=== PATIENT | male | born 1955 | race Caucasian/White ===

== ENCOUNTER → 2020-12-08 07:22 | Outpatient (BNVA) | payer SELFPAY | PROVIDERS: PCP Internal Medicine; Visit Provider Internal Medicine | DX: Z02.79 Encounter for issue of other medical certificate (principal) ==

== ENCOUNTER 2023-10-24 08:11 | Outpatient (REF) | payer MEDICARE, SELFPAY ==
--- NOTE | 2023-10-24 08:17 | EMG_ITS ---
Chief complaint: Bilateral feet numbness Reason for referral: Evaluate for neuropathy Referred by: Bc ROSENBERG Procedure done: Bilateral lower extremity NCS/EMG Precautions and/or limitations: None The limb temperature was monitored continuously and remained between 32-36 degrees C during the performance of the NCS. Nerve Conduction Studies Anti Sensory Summary Table ?Stim Site NR Onset (ms) Norm Onset (ms) Peak (ms) Norm Peak (ms) O-P Amp (?V) Norm O-P Amp Site1 Site2 Delta-0 (ms) Dist (cm) Alberto (m/s) Norm Alberto (m/s) Left Sural Anti Sensory (Lat Mall) Calf NR <4.0 >5.0 Calf Lat Mall 14.0 Right Sural Anti Sensory (Lat Mall) Calf NR <4.0 >5.0 Calf Lat Mall 14.0 Motor Summary Table ?Stim Site NR Onset (ms) Norm Onset (ms) O-P Amp (mV) Norm O-P Amp iAmp (mV) Amp (1st) (%) Site1 Site2 Delta-0 (ms) Dist (cm) Alberto (m/s) Norm Alberto (m/s) Left Peroneal Motor (Ext Dig Brev) Ankle ? 4.1 <4.0 1.8 >2.5 1.7 100.0 Ankle Ext Dig Brev 4.1 0.0 B Fib ? 12.4 2.9 2.8 161.1 B Fib Ankle 8.3 34.0 41 >40 Poplt ? 13.5 2.9 2.7 161.1 Poplt B Fib 1.1 5.5 50 >40 Right Peroneal Motor (Ext Dig Brev) Ankle ? 4.7 <4.0 3.3 >2.5 3.8 100.0 Ankle Ext Dig Brev 4.7 0.0 B Fib ? 12.0 3.3 4.1 100.0 B Fib Ankle 7.3 32.5 45 >40 Poplt ? 13.0 3.3 4.1 100.0 Poplt B Fib 1.0 5.0 50 >40 Left Tibial Motor (Abd Mckay Brev) Ankle ? 4.5 <5 8.0 >2.5 11.2 100.0 Ankle Abd Mckay Brev 4.5 0.0 Knee ? 15.2 6.3 7.6 78.8 Knee Ankle 10.7 39.0 36 >40 Right Tibial Motor (Abd Mckay Brev) Ankle ? 3.4 <5 14.5 >2.5 19.2 100.0 Ankle Abd Mckay Brev 3.4 0.0 Knee ? 14.1 7.2 9.8 49.7 Knee Ankle 10.7 42.5 40 >40 EMG ?Side Muscle Nerve Root Ins Act Fibs Psw Amp Dur Poly Recrt Int Pat Comment Right AbdHallucis MedPlantar S1-2 Nml Nml Nml Nml Nml 0 Nml Complete Right AntTibialis Dp Br Peron L4-5 Nml Nml Nml Nml Nml 0 Nml Complete Right PostTibialis Tibial L5, S1 Nml Nml Nml Nml Nml 0 Nml Complete Right MedGastroc Tibial S1-2 Nml Nml Nml Nml Nml 0 Nml Complete Right VastusMed Femoral L2-4 Nml Nml Nml Nml Nml 0 Nml Complete Left AbdHallucis MedPlantar S1-2 Nml Nml Nml Nml Nml 0 Nml Complete Left AntTibialis Dp Br Peron L4-5 Nml Nml Nml Nml Nml 0 Nml Complete Left PostTibialis Tibial L5, S1 Nml Nml Nml Nml Nml 0 Nml Complete Left MedGastroc Tibial S1-2 Nml Nml Nml Nml Nml 0 Nml Complete Left VastusMed Femoral L2-4 Nml Nml Nml Nml Nml 0 Nml Complete FINDINGS: Right peroneal nerve showed prolonged distal latency, normal amplitude and normal conduction velocity. Left peroneal nerve showed prolonged distal latency, small amplitude and normal conduction velocity. Left tibial nerve showed normal distal latency, normal amplitude and slow conduction velocity. Bilateral sural nerves absent response. All other nerves tested were within normal. Concentric needle EMG was performed in selected muscles of the bilateral lower extremity. Study did not reveal signs of electric abnormalities as shown in the table above. IMPRESSION: 1. This is an abnormal study. 2. 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 3. There is no electrodiagnostic evidence for lumbosacral plexopathy or lumbar radiculopathy. Thank you for your kind referral. Cathy Harman MD, JERI Board Certified, [place] [employer] (ABPMR) Board Certified, [place] [employer] Electro[employer] (ABEM) CODIN 52481 x2 MTDD
== END 2023-10-24 08:12 | disposition home or self-care (01) ==
LOC: HO.NEURO 08:11
PROVIDERS: Visit Provider Physician Assistant Medical
DX: G60.3 Idiopathic progressive neuropathy (principal)
CPT/HCPCS: 95886; 95909

== ENCOUNTER → 2023-10-24 08:17 | Outpatient (BNV) | payer MEDICARE, SELFPAY | PROVIDERS: Visit Provider Physical Medicine & Rehabilitation | DX: R20.2 Paresthesia of skin (principal); G62.89 Other specified polyneuropathies | CPT/HCPCS: 95886; 95909 ==